=== PATIENT | female | born 1965 | race African-American/Black ===

== ENCOUNTER 2017-03-11 13:55 | Emergency (ER) | payer OTHER ==
[2017-03-11] MEDS ORDERED: ALBUTEROL SO4 2.5/IPRATROPIUM 0.5 INH SOL 3 ML VIAL.NEB. NEB ONE ×2 (14:03→14:43)
[2017-03-11 14:33] VITALS: BMI 22.6
[2017-03-11] MEDS ORDERED: methylPREDNISolone NA SUCC 125 MG/2 ML VIAL IVPB ONE (15:05)
[2017-03-11] MEDS ORDERED: predniSONE 20 MG TABLET (UD) ONE ×2 (15:05→15:08)
[2017-03-11] MEDS ORDERED: predniSONE 10 MG TABLET (UD) ONE (15:05)
[2017-03-11] MEDS ORDERED: predniSONE 20 MG TABLET (UD) PO ONE (15:20)
[2017-03-11 15:23] LABS: BASOPHIL 0.9 % (0-2.0); EOSINOPHIL 17.7 % (0-4.5); MCH 28.8 pg (25.7-33.7); MCHC 33.2 g/dl (32.0-36.0); MEAN CELL VOLUME 86.8 fl (80-96); MEAN PLT VOLUME 9.4 fl (7.5-11.1); NEUTROPHILS 38.4 % (42.8-82.8); PLATELET COUNT 240 K/MM3 (134-434); RDW 12.8 % (11.6-15.6); WHITE BLOOD COUNT 5.2 K/mm3 (4.0-10.0)
[2017-03-11 15:38] LABS: ANION GAP 10 (8-16); BILIRUBIN,TOTAL 0.5 mg/dL (0.2-1.0); CALCIUM 9.8 mg/dL (8.5-10.1); CO2 28 mmol/L (21-32); CPK 151 IU/L (26-192); CREATININE 0.8 mg/dL (0.55-1.02); GLUCOSE,RANDOM 93 mg/dL (74-106); LDH 182 U/L (84-246); SGOT/AST 17 U/L (15-37); SGPT/ALT 24 U/L (12-78); TOT PROT 7.7 g/dl (6.4-8.2)
[2017-03-11 15:40] LABS: ALK PHOS 54 U/L (45-117); TROPONIN I < 0.02 ng/ml (0.00-0.05)
--- NOTE | 2017-03-11 15:57 | PDOC ---
History of Present Illness - General Chief Complaint: Respiratory Stated Complaint: CHEST PAIN/SHORTNESS OF BREATH Time Seen by Provider: 03/11/17 14:10 - History of Present Illness Initial Comments: 03/11/17 15:52 "The patient is a 52 year old female with a significant PMH of HIV (viral load undetectable & CD4 of 1200 in January) who presents to the emergency department with 2 days of worsening shortness of breath. She also notes associated productive cough with yellow sputum and chest tightness when she coughs. The patient reports that her shortness of breath began 2 days ago and used an Albuterol inhaler yesterday with some relief. However, she reports that she had significant difficulty breathing earlier today at work, prompting her visit. The patient was given the inhaler 6 weeks ago at the [facility] ED when she presented with a similar episode. She was told to follow up with a [employer] but was unable to do so. She reports having similar episodes about 4 or 5 times in the past 9 years. Denies h/o asthma. The patient denies cigarette use but notes that her is a daily smoker who smokes in the house frequently. The patient denies recent sick contacts or recent travel. The patient denies headache and dizziness. Denies fever, chills, nausea, vomit, diarrhea, and constipation. Denies dysuria, frequency, urgency, and hematuria. Allergies: Diphenhydramine HCl. Red yeast rice. Past surgical history: None reported. Social history: is everyday smoker. No reported cigarette, alcohol, or drug use. PCP: None reported. " Past History - Past Medical History Allergies/Adverse Reactions: Allergies Allergy/AdvReac Type Severity Reaction Status Date / Time red yeast rice Allergy Severe Difficulty Verified 03/11/17 14:22 Breathing diphenhydramine HCl Allergy Difficulty Verified 03/11/17 14:22 [From Benadryl] Breathing Home Medications: Ambulatory Orders Azithromycin 250 mg PO DAILY #4 tablet 03/11/17 Prednisone [Prednisone 50 MG TABLETS] 50 mg PO DAILY #4 tablet 03/11/17 Other medical history: breathing problems requiring inhaler - Suicide/Smoking/Psychosocial Hx Smoking History: Never smoked Review of Systems - Review of Systems Comments:: 03/11/17 15:54 "GENERAL/CONSTITUTIONAL: No fever or chills. No weakness. HEAD, EYES, EARS, NOSE AND THROAT: No change in vision. No ear pain or discharge. No sore throat. CARDIOVASCULAR: (+) Chest pain. (+) Shortness of breath. RESPIRATORY: (+) Productive cough, yellow sputum. No wheezing or hemoptysis. GASTROINTESTINAL: No nausea, vomiting, diarrhea or constipation. GENITOURINARY: No dysuria, frequency, or change in urination. MUSCULOSKELETAL: No joint or muscle swelling or pain. No neck or back pain. SKIN: No rash NEUROLOGIC: No headache, vertigo, loss of consciousness, or change in strength/ sensation. ENDOCRINE: No increased thirst. No abnormal weight change. HEMATOLOGIC/LYMPHATIC: No anemia, easy bleeding, or history of blood clots. ALLERGIC/IMMUNOLOGIC: No hives or skin allergy. " *Physical Exam - Vital Signs Last Vital Signs Temp Pulse Resp BP Pulse Ox 98.8 F 88 32 H 128/83 98 03/11/17 14:10 03/11/17 14:10 03/11/17 14:10 03/11/17 14:10 03/11/17 14:15 - Physical Exam Comments: 03/11/17 15:54 "GENERAL: Awake, alert, and fully oriented, in no acute distress HEAD: No signs of trauma EYES: PERRLA, EOMI, sclera anicteric, conjunctiva clear ENT: Auricles normal inspection, hearing grossly normal, nares patent, oropharynx clear without exudates. Moist mucosa NECK: Normal ROM, supple, no lymphadenopathy, JVD, or masses LUNGS: (+) Bilateral expiratory wheezes, no rales/rhonchi HEART: Regular rate and rhythm, normal S1 and S2, no murmurs, rubs or gallops ABDOMEN: Soft, nontender, normoactive bowel sounds. No guarding, no rebound. No masses EXTREMITIES: Normal range of motion, no edema. No clubbing or cyanosis. No cords, erythema, or tenderness NEUROLOGICAL: Cranial nerves II through XII grossly intact. Normal speech, normal gait SKIN: Warm, Dry, normal turgor, no rashes or lesions noted." Heart Score/ECG Review - History History: Slightly suspicious - Electrocardiogram EKG: Non specific repolarization disturbance - Age Age: 45-65 - Risk Factors Based on the list above the patient has:: No risk factors known - Troponin Troponin: </= normal limit - Score Heart Score - Total: 2 - ECG Impressions Comment:: 03/11/17 15:55 NSR, no CHRISTIANA/STDs, TWI in V2-V3, axis wnl, intervals wnl ED Treatment Course - LABORATORY CBC & Chemistry Diagram: 03/11/17 14:45 03/11/17 14:45 - ADDITIONAL ORDERS Additional order review: Laboratory Results 03/11/17 14:45 Sodium 140 Potassium 3.9 Chloride 102 Carbon Dioxide 28 Anion Gap 10 BUN 12 Creatinine 0.8 Creat Clearance w eGFR > 60 Random Glucose 93 Calcium 9.8 Total Bilirubin 0.5 AST 17 ALT 24 Alkaline Phosphatase 54 LD Total 182 Creatine Kinase 151 Troponin I < 0.02 B-Natriuretic Peptide 64.12 Total Protein 7.7 Albumin 4.0 03/11/17 14:45 RBC 4.13 MCV 86.8 MCHC 33.2 RDW 12.8 MPV 9.4 Neutrophils % 38.4 L Lymphocytes % 36.4 Monocytes % 6.6 Eosinophils % 17.7 H Basophils % 0.9 - RADIOLOGY Radiology Studies Ordered: Category Date Time Status CHEST PA & LAT [RAD] Stat Radiology 03/11/17 14:44 Ordered - Medications Given in the ED: ED Medications Discontinued Medications Generic Name Dose Route Start Last Admin Trade Name Freq PRN Reason Stop Dose Admin Albuterol/Ipratropium 1 amp 03/11/17 14:43 03/11/17 15:17 Duoneb - NEB 03/11/17 14:44 1 amp ONCE ONE Administration Methylprednisolone Sodium Succinate 125 mg 03/11/17 15:05 03/11/17 15:19 Solu-Medrol - IVPB 03/11/17 15:06 Not Given ONCE ONE Prednisone 50 mg 03/11/17 15:20 03/11/17 15:20 Deltasone - PO 03/11/17 15:21 50 mg NOW ONE Administration Medical Decision Making - Medical Decision Making 03/11/17 15:55 52 F with SOB x 2 days, wheezing on exam. Likely asthma vs COPD. Pt with no risk factors for DVT/PE. Chest tightness is associated with cough only, not suspicious for EKG. - Labs, trop - CXR - Nebs, steroids 03/11/17 16:59 Labs wnl, trop negative, BNP wnl Pt reassessed - reports she feels much better with nebs and prednisone. Lung exam now completely clear. Pt likely with asthma/COPD exacerbation. Will DC home with Z-pack and prednisone. Pt has albuterol pump. *DC/Admit/Observation/Transfer Diagnosis at time of Disposition: COPD (chronic obstructive pulmonary disease) - Discharge Dispostion Disposition: HOME Admit: No - Referrals Referrals: Ashwin Jhaveri MD [Staff Physician] - Андрей Dos Santos MD, MD [Staff Physician] - - Patient Instructions Printed Discharge Instructions: Asthma -- Adult Additional Instructions: Take the prednisone and azithromycin as prescribed for 4 more days. Use your albuterol pump every 4 hours as needed for coughing and shortness of breath. Call the numbers provided to make an appointment with pulmonary clinic and with the [facility]. If you experience worsening shortness of breath, chest pain, fevers, or any other concerning symptoms, return to the ER immediately. - Attestations Physician Attestion: 03/11/17 17:03 I, Dr. Gigi Mccormack MD, attest that this document has been prepared under my direction and personally reviewed by me in its entirety. I further attest, that it accurately reflects all work, treatment, procedures and medical decision -making performed by me.
[2017-03-11] MEDS ORDERED: AZITHROMYCIN 500 MG TABLET PO ONE (16:57)
[2017-03-11] MEDS ORDERED: AZITHROMYCIN 500 MG TABLET ONE (17:03)
[2017-03-11 17:29] VITALS: BP 130/78; PULSE 102; TEMP 98.4
[2017-03-12] MEDS ORDERED: predniSONE 20 MG TABLET (UD) PO ONE (14:44)
--- NOTE | 2017-03-12 22:37 | EKG ---
Test Reason : Blood Pressure : / mmHG Vent. Rate : 089 BPM Atrial Rate : 089 BPM P-R Int : 140 ms QRS Dur : 080 ms QT Int : 364 ms P-R-T Axes : 076 077 062 degrees QTc Int : 442 ms NORMAL SINUS RHYTHM BIATRIAL ENLARGEMENT ABNORMAL ECG NO PREVIOUS ECGS AVAILABLE CLINICAL CORRELATION IS RECOMMENDED Confirmed by CLARITA MARKS MD ([id number]) on 03/12/2017 10:37:34 PM Referred By: Confirmed By:CLARITA MARKS MD
== END 2017-03-11 17:10 | disposition home or self-care (01) ==
LOC: JER 13:55
PROC: 3E0F7GC Introduction of Other Therapeutic Substance into Respiratory Tract, Via Natural or Artificial Opening (ICD-10-PCS; principal; 2017-03-11)
DX: J44.9 Chronic obstructive pulmonary disease, unspecified (principal)
CPT/HCPCS: 36415; 71020-TC; 80053; 82553; 83615; 83880; 84484; 85025; 93005; 93010; 99283-25